=== PATIENT | female | born 1995 | race Two or more races ===

== ENCOUNTER 2024-05-02 15:36 | Emergency (ER) | payer OTHER ==
[~2024-05-02] VITALS: Ht 154.9 cm; Wt 63.1 kg
--- NOTE | 2024-05-02 16:27 | ED.PDOC ---
GI ASSESSMENT HPI Comments 29 y.o female presents to the ED for a chief complaint of diffused abdominal pain associated with nausea, vomiting and diarrhea that started this morning. Patient describes pain as sharp, constant and has no alleviating factors, despite taking 2 Midol OTC medication. Patient reports she is currently on her 4th day of her menstrual cycle, has minimal bleeding with cycles lasting up to 6 days. Patient states pain is new, no previous cramping sensation like this episode. She denies any fever, chills, or urinary symptoms. She is on control. Time Seen by MD: 16:17 Reviewed Notes: Nurses Notes, Medications, Allergies Information Source: Patient Mode of Arrival: Ambulatory Timing: Hours Duration: Since onset Quality: Sharp Vomitus: Hard Stool: Loose Severity: Moderate Recent: None Recent Hx of: None Pain Location: Diffuse Modifying Factors: Nothing Associated sign and symptoms: Nausea, Vomiting, Diarrhea, Abdominal Pain Past Medical History PAST MEDICAL HISTORY: Anxiety Past Medical History (Other): On control Surgical History: Denies all surgeries CASINO INVESTIGATOR History: No Pertinent CASINO INVESTIGATOR History Family History Family History: Reviewed,noncontributory to illness Social History Smoker: Non-Smoker Alcohol: Denies ETOH Use Drugs: Denies Drug Use Lives In: Home Constitutional: denies: chills, diaphoresis, fatigue, fever, malaise, sweats, weakness, others EENTM: denies: blurred vision, double vision, ear bleeding, ear discharge, ear drainage, ear pain, ear ringing, eye pain, eye redness, hearing loss, mouth pain, mouth swelling, nasal discharge, nose bleeding, nose congestion, nose pain, photophobia, tearing, throat pain, throat swelling, voice changes, others Respiratory: denies: cough, hemoptysis, orthopnea, SOB at rest, shortness of breath, SOB with excertion, stridor, wheezing, others Cardiovascular: denies: chest pain, dizzy spells, diaphoresis, Dyspnea on exertion, edema, irregular heart beat, left arm pain, lightheadedness, palpitations, PND, syncope, others Gastrointestinal: reports: abdominal pain, diarrhea, nausea, vomiting; denies: abdomen distended, blood streaked bowels, constipated, dysphagia, difficulty swallowing, hematemesis, melena, poor appetite, poor fluid intake, rectal bleeding, rectal pain, others Genitourinary: denies: abnormal vagina bleeding, burning, dyspareunia, dysuria, flank pain, frequency, hematuria, incontinence, pain, , vagina discharge, urgency, others Neurological: denies: dizziness, fainting, headache, left sided numbness, left sided weakness, numbness, paresthesia, pre-existing deficit, right sided numbness, right sided weakness, seizure, speech problems, tingling, tremors, weakness, others Musculoskeletal: denies: back pain, gout, joint pain, joint swelling, muscle pain, muscle stiffness, neck pain, others Integumetry: denies: bruises, change in color, change in hair/nails, dryness, laceration, lesions, lumps, rash, wounds, others Allergic/Immunocompromised: denies: Difficulty Healing, Frequent Infections, Hives, Itching, others Hematologic/Lymphatic: denies: anemia, blood clots, easy bleeding, easy bruising, swollen glands, others Endocrine: denies: excessive hunger, excessive sweating, excessive thirst, excessive urination, flushing, intolerance to cold, intolerance to heat, unexplained weight gain, unexplained weight loss, others Psychiatric: denies: anxiety, bipolar disorder, depression, hopeless, panic disorder, schizophrenia, sleepless, suicidal, others All Other Systems: Reviewed and Negative Physical Exam General Appearance: Moderate Distress (Mild to moderate distress due to bilateral pelvic pain concerns.), Normal HEENT: Normal ENT Inspection, Pharynx Normal, TMs Normal Neck: Full Range of Motion, Non-Tender, Normal, Normal Inspection Respiratory: Chest Non-Tender, Lungs Clear, No Accessory Muscle Use, No Respiratory Distress, Normal Breath Sounds Cardiovascular: No Edema, No JVD, No Murmur, No Gallop, Normal Peripheral Pulses, Regular Rate/Rhythm Breast Exam: Deferred Gastrointestinal: Other (Diffuse bilateral pelvic tenderness to palpation. No pulsatile masses. Abdomen and pelvis were reasonably soft.) Genitalia: Deferred Pelvic: Deferred Rectal: Deferred Extremities: No calf tenderness, Normal capillary refill, Normal inspection, Normal range of motion, Non-tender, No pedal edema Neurologic: Alert, No Motor Deficits, Normal Affect, Normal Mood, No Sensory Deficits Cerebellar Function: Normal Reflexes: Normal Skin: Dry, Normal Color, Warm Lymphatic: No Adenopathy Was a procedure done? Was a procedure done?: No GI differential Dx Differential Diagnosis: Inflammatory BD, Ischemic Bowel, Ovarian cyst/torsion, Electrolyte Imbalance, Food Poisoning, , Bacterial, Viral X-Ray, Labs, Meds, VS Vital Signs Date Time Temp Pulse Resp B/P (MAP) Pulse Ox O2 Delivery O2 Flow Rate FiO2 05/03/24 00:20 97.5 76 18 132/79 (96) 95 97.5 05/03/24 00:20 76 18 95 Room Air 05/02/24 16:32 99.0 99 20 144/93 (110) 98 Lab Test 05/02/24 21:38 05/02/24 16:05 Range/Units Urine Color Yellow Yellow Urine Clarity Clear Clear Urine pH 6.0 5.0-9.0 Urine Specific [place] 1.039 H 1.001-1.035 Urine Protein Trace H Negative Urine Ketones 2+ H Negative Urine Blood 2+ H Negative /uL Urine Nitrite Negative Negative Urine Bilirubin Negative Negative Urine Urobilinogen 2 H Negative mg/dL Urine Leukocyte Esterase Negative Negative /uL Urine RBC 7 0 - 4 /hpf Urine WBC 2 0 - 5 /hpf Urine Squamous Epithelial Cells Few <5 /hpf Urine Bacteria None seen None Seen /hpf Urine Mucus Few None Seen Urine Glucose Normal Normal mg/dL Urine Test Negative Negative White Blood Count 7.4 4.4-10.8 10^3/uL Red Blood Count 5.58 H 4.0-5.20 10^6/uL Hemoglobin 15.1 12.2-16.2 g/dL Hematocrit 46.1 H 36.0-46.0 % Mean Corpuscular Volume 82.5 80.0-100.0 fL Mean Corpuscular Hemoglobin 27.0 L 28.0-32.0 pg Mean Corpuscular Hemoglobin Concent 32.7 32.0-36.0 g/dL Red Cell Distribution Width 14.0 11.8-14.3 % Platelet Count 143 140-450 10^3/uL Mean Platelet Volume 10.2 6.9-10.8 fL Neutrophils (%) (Auto) 80.4 H 37.0-80.0 % Lymphocytes (%) (Auto) 12.8 10.0-50.0 % Monocytes (%) (Auto) 5.5 0.0-12.0 % Eosinophils (%) (Auto) 0.8 0.0-7.0 % Basophils (%) (Auto) 0.5 0.0-2.0 % Neutrophils # (Auto) 6.0 1.6-8.6 10 ^3/uL Lymphocytes # (Auto) 0.9 0.4-5.4 10 ^3/uL Monocytes # (Auto) 0.4 0-1.3 10 ^3/uL Eosinophils # (Auto) 0.1 0-0.8 10 ^3/uL Basophils # (Auto) 0 0-0.2 10 ^3/uL Nucleated Red Blood Cells 0.0 % Sodium Level 140 136-145 mmol/L Potassium Level 4.2 3.5-5.1 mmol/L Chloride Level 108 H 98-107 mmol/L Carbon Dioxide Level 25 20-31 mmol/L Anion Gap 7 5-15 Blood Urea Nitrogen 10 9-23 mg/dL Creatinine 0.73 0.550-1.02 mg/dL Glomerular Filtration Rate Calc 116 >90 mL/min BUN/Creatinine Ratio 13.7 10.0-20.0 Serum Glucose 90 74-106 mg/dL Calcium Level 10.0 8.7-10.4 mg/dL Current Medications Medications (Trade) Dose Ordered Sig/Elizabeth Route Start Time Stop Time Status Last Admin Ondansetron HCl (Zofran Po) 4 mg ONCE ONCE PO 05/02/24 16:30 05/02/24 16:31 DC 05/02/24 21:40 Ketorolac Tromethamine (Toradol Injection) 30 mg ONCE ONCE IM 05/02/24 16:30 05/02/24 16:31 DC 05/02/24 21:40 X-Ray, Labs, Meds, VS Comment All studies performed the ED were evaluated by me personally. Laboratories and urine results were or for any acute process. Ultrasound of pelvis revealed a normal-size uterus with unremarkable bilateral ovaries. Patient appears to be having abdominal pain that may be due to her menses. Advised patient utilize medication as needed and follow up with poacher operator for continued evaluation for excessive menses pain. Time of 1ST Reevaluation: 02:27 Reevaluation 1ST: Improved Consultation: PCP, environmental services aide Patient Education/Counseling: Diagnosis, Treatment, Prognosis Family Education/Counseling: Diagnosis, Treatment, No Family Present Departure 1 Departure Time of Disposition: 02:27 Impression: Primary Impression: Pelvic pain Disposition: 01 HOME / SELF CARE / HOMELESS Condition: Stable Additional Instructions: Advised patient utilize medication as needed for symptomatic relief in additionally, patient should follow up with Gynecology for evaluation and conversation is related to her excessive pelvic pain during menses. e-Prescriptions Ondansetron Odt 4MG Tab (ZOFRAN PO) 4 Mg Tb 4 MG PO Q6HP PRN, #30 TAB ODT TAB-DISSOLVE IN MOUTH, THEN SWALLOW Prov: GABI MILLER PAC 05/03/24 Ibuprofen Micronized (Ibuprofen) 800 Mg Tab 800 MG PO Q8HP PRN, #20 TAB Prov: GABI MILLER PAC 05/03/24 Discharged With: Self, Friend Critical Care Note Critical Care Time?: No Stability Stability form required: No I personally scribed for GABI MILLER PAC ([email or web address]) on 05/02/24 at 16:27. Electronically submitted by Ivette Rocha ([facility]). GABI MILLER PAC May 02, 2024 16:27
[2024-05-02 17:25] LABS: Basophils # (auto) 0 10 ^3/uL (0-0.2); Eosinophils # (auto) 0.1 10 ^3/uL (0-0.8); Eosinophils % (auto) 0.8 % (0.0-7.0); Hemoglobin 15.1 g/dL (12.2-16.2); Lymphocytes # (auto) 0.9 10 ^3/uL (0.4-5.4); Monocytes # (auto) 0.4 10 ^3/uL (0-1.3); White Blood Cell 7.4 10^3/uL (4.4-10.8)
[2024-05-02 17:26] LABS: Basophils % (auto) 0.5 % (0.0-2.0); Hematocrit 46.1 % (36.0-46.0); Lymphocytes % (auto) 12.8 % (10.0-50.0); Mean Corpuscular Hgb Conc. 32.7 g/dL (32.0-36.0); Mean Corpuscular Volume 82.5 fL (80.0-100.0); Monocytes % (auto) 5.5 % (0.0-12.0); Neutrophils % (auto) 80.4 % (37.0-80.0); Platelet Count (auto) 143 10^3/uL (140-450); Potassium 4.2 mmol/L (3.5-5.1); Red Blood Cells 5.58 10^6/uL (4.0-5.20); Sodium 140 mmol/L (136-145)
[2024-05-02 17:28] LABS: Anion Gap 7 (5-15); Carbon Dioxide 25 mmol/L (20-31)
[2024-05-02 17:33] LABS: BUN/Creatinine Ratio 13.7 (10.0-20.0); Blood Urea Nitrogen 10 mg/dL (9-23); Glucose 90 mg/dL (74-106)
[2024-05-02 17:35] LABS: Chloride 108 mmol/L (98-107)
--- NOTE | 2024-05-02 19:12 | DVH ---
INDICATION: Diffuse bilateral pelvic pain TECHNIQUE: Multiple real-time grayscale transabdominal and transvaginal. sonographic images along wit h color and duplex Doppler of the uterus and ovaries were obtained. COMPARISON: None FINDINGS: The uterus measures 7.2 x 4 x 3.5 cm. cm. The endometrial stripe measures 0.34 cm. The right ovary measures 2.5 x 2.9 x 2.4 cm. Right ovarian volume is 8.9 cc. cm. The left ovary measures 2.9 x 1.7 x 1.9 cm. Left ovarian volume is 3 cc. cm. Subsequent color and duplex Doppler interrogation of the ovaries demonstrated symmetric vascular flow to both ovaries, though this does not exclude the possibility of torsion due to the dual blood suppl y. IMPRESSION: 1. Uterus measures 7.2 by 4 x 3.5 cm. 2. Endometrial canal measures 0.34 cm. 3. Ovaries appear normal with no torsion. HS:Y
[2024-05-02] MEDS: ONDANSETRON ODT 4 MG TAB PO ONE (21:40)
[2024-05-02] MEDS: KETOROLAC TROMETH 60MG/2ML VIAL IM ONE (21:40)
[2024-05-02 21:58] LABS: Urine Bacteria None Seen /hpf (None Seen)
[2024-05-02 22:05] LABS: Urine Blood 2+ /uL (Negative); Urine Clarity Clear (Clear); Urine Color Yellow (Yellow); Urine Mucus FEW (None Seen); Urine Protein, UAD TRACE (Negative); Urine Specific Gravity 1.039 (1.001-1.035); Urine Urobilinogen 2 mg/dL (Negative); Urine WBC 2 /hpf (0 - 5)
[2024-05-03] MEDS ORDERED: IBUP-1455 PO (02:28)
[2024-05-03] MEDS ORDERED: ZOFR4T PO (02:28)
[2024-05-03 03:02] VITALS: BP 116/79; PULSE 86; RESP 18; TEMP 97.5; O2SAT 97
== END 2024-05-03 03:04 | disposition home or self-care (01) ==
LOC: ER 15:36
DX: R10.2 Pelvic and perineal pain (principal)
CPT/HCPCS: 36415; 76830; 76856; 80048; 81001; 81025; 85025; 96372; 99285; J1885; Q0162